=== PATIENT | male | born 1955 | race Native Hawaiian/Other Pacific Islander ===

== ENCOUNTER 2021-11-19 00:06 | Emergency (ER) | payer OTHER ==
[~2021-11-19] VITALS: Ht 175.3 cm; Wt 71.7 kg
[2021-11-19 00:35] LABS: PLATELET COUNT 376 K/uL (142-355)
[2021-11-19 00:48] LABS: POTASSIUM 3.6 mmol/L (3.6-5.2)
[2021-11-19 01:32] VITALS: BP 126/72; TEMP 98
[2021-11-19] MEDS ORDERED: DICLOFENAC SODIUM1 % TD (05:08)
[2021-11-19] MEDS ORDERED: OXCARBAZEPIN150 MG PO (05:09)
[2021-11-19] MEDS ORDERED: TAMS0.4C PO (05:10)
[2021-11-19] MEDS ORDERED: HYDR25CA25 PO (05:10)
[2021-11-19] MEDS ORDERED: VENLAFAXINE H37.5 MG PO (05:11)
[2021-11-19] MEDS ORDERED: EXELON9.5 MG/24 TOP (05:12)
[2021-11-19] MEDS ORDERED: MIRALAX17 GM PO (05:12)
[2021-11-19] MEDS ORDERED: LORA2INJ21 IM (05:14)
== END 2021-11-19 01:32 | disposition still patient (30) ==
LOC: ED 00:06
PROVIDERS: Hospitalist
DX: F25.0 Schizoaffective disorder, bipolar type (principal); R45.1 Restlessness and agitation; Z11.52 Encounter for screening for COVID-19; Z04.6 Encounter for general psychiatric examination, requested by authority
CPT/HCPCS: 36415; 80053; 85027; 87635; 93005; 96372; 99283; J1200; J3486; U0003

== ENCOUNTER 2022-04-28 11:15 | Emergency (ER) | payer OTHER ==
[~2022-04-28] VITALS: Ht 175.3 cm; Wt 64.4 kg
[~2022-04-28 11:15] MED LIST: DICLOFENAC SODIUM1 % TD; EXELON9.5 MG/24 TOP; HYDR25CA25 PO; LORA2INJ21 IM; MIRALAX17 GM PO; OXCARBAZEPIN150 MG PO; TAMS0.4C PO; VENLAFAXINE H37.5 MG PO
[2022-04-28 11:44] VITALS: BP 128/70; TEMP 97.3
[2022-04-28 12:41] LABS: POTASSIUM 4.1 mmol/L (3.6-5.2)
[2022-04-28 12:49] LABS: PLATELET COUNT 290 K/uL (142-355)
[2022-04-28] MEDS ORDERED: ASPI81TA4 PO (14:35)
[2022-04-28] MEDS ORDERED: PANTOPRAZOLE 40MG TA PO (14:36)
[2022-04-28] MEDS ORDERED: ZYPREXA ZYDI5 MG PO (14:36)
[2022-04-28] MEDS ORDERED: RIVADIS4 TOP (14:37)
[2022-04-28] MEDS ORDERED: TAMS0.4C PO (14:38)
[2022-04-28] MEDS ORDERED: TRAZ50TA36 PO (14:38)
[2022-04-28] MEDS ORDERED: LORA0.5T17 PO (14:39)
[2022-04-28] MEDS ORDERED: OLANZAPINE7.5 MG PO (14:40)
[2022-04-28] MEDS ORDERED: RISP0.5T2 PO (14:40)
[2022-04-28] MEDS ORDERED: OXCARBAZEPIN600 MG PO (14:41)
[2022-04-28] MEDS ORDERED: MAGNSUS68 PO (14:42)
== END 2022-04-28 13:12 | disposition other institution (70) ==
LOC: ED 11:15
PROVIDERS: Family Medicine
DX: R45.1 Restlessness and agitation (principal); S00.83XA Contusion of other part of head, initial encounter; Z11.52 Encounter for screening for COVID-19; Z04.6 Encounter for general psychiatric examination, requested by authority; Y04.0XXA Assault by unarmed brawl or fight, initial encounter; Y92.89 Other specified places as the place of occurrence of the external cause
CPT/HCPCS: 80053; 85027; 87635; 93005; 99283; U0003